=== PATIENT | female | born 1990 | race Caucasian/White ===

== ENCOUNTER → 2017-06-11 19:20 | Outpatient (CLI) | payer OTHER, SELFPAY ==
[2017-06-19 11:52] LABS: HPV APTIMA, High Risk Negative (Negative); HPV Reflexed? YES, CHARGE PATIENT
== END ==
PROVIDERS: Visit Provider Obstetrics & Gynecology
DX: Z12.4 Encounter for screening for malignant neoplasm of cervix (principal)
CPT/HCPCS: 87624; 88175; G0145

== ENCOUNTER → 2017-07-16 14:09 | Outpatient (CLI) | payer OTHER, SELFPAY ==
[2017-07-16 21:23] LABS: Chlamydia Trachomatis by PCR Negative (Negative); Neisserai gonorrhoeae by PCR Negative (Negative); Probe Check PASS; Sample Adequacy Control PASS; Specimen Processing Control PASS
[2017-07-19 11:08] LABS: HSV 1 IgG < 0.91 index (0.00-0.90); HSV 2 IgG < 0.91 index (0.00-0.90)
[2017-07-20 13:54] LABS: HSV Culture Without Typing NEGATIVE
== END ==
PROVIDERS: Family Provider Family Medicine; PCP Family Medicine; Visit Provider Obstetrics & Gynecology
DX: A60.04 Herpesviral vulvovaginitis (principal); A60.00 Herpesviral infection of urogenital system, unspecified
CPT/HCPCS: 36415; 86695; 86696; 87255; 87491; 87591

== ENCOUNTER → 2018-01-23 20:46 | Outpatient (CLI) | payer OTHER, SELFPAY ==
[2018-01-23 15:47] VITALS: BMI 21.2
== END ==
PROVIDERS: Family Provider Family Medicine; PCP Family Medicine; Referring Provider Physician Assistant Medical; Visit Provider Physician Assistant Medical
DX: R39.9 Unspecified symptoms and signs involving the genitourinary system (principal)
CPT/HCPCS: 87086

== ENCOUNTER → 2018-02-13 10:06 | Outpatient (CLI) | payer OTHER, SELFPAY ==
[2018-02-13 09:51] VITALS: BMI 21.2
[2018-02-13 12:14] LABS: HIV - WCH Non-Reactive (Nonreactive)
[2018-02-13 22:19] LABS: Chlamydia Trachomatis by PCR Negative (Negative); Neisserai gonorrhoeae by PCR Negative (Negative); Probe Check PASS; Sample Adequacy Control PASS; Specimen Processing Control PASS
[2018-02-15 04:54] LABS: Rapid Plasmin Reagin (RPR) NONREACTIVE (NONREACTIVE)
[2018-02-15 06:08] LABS: HCV Quant. RNA PCR HCV Not Detected IU/mL (.); HEPATITIS B SURFACE AG Negative (Negative); Hepatitis A IgM Antibody Negative (Negative); Hepatitis B Core AB IgM Negative (Negative)
[2018-02-15 12:25] LABS: HSV 1 IgG < 0.91 index (0.00-0.90); HSV 2 IgG < 0.91 index (0.00-0.90); Hep C Antibodies <0.1 s/co ratio (0.0-0.9)
--- OUTSIDE RECORDS SUMMARY | 2018-04-01 10:26 | XMS RPT_ITS ---
:1990 Author Organization [place] Support Name Relationship Address Phone MAISHA, KEELY Unavailable [address] + [address] Unavailable [address] + [place] [address] MAISHA, KEELY Unavailable [address] + [address] Unavailable [address] + [place] [address] MAISHA, KEELY Unavailable [address] + [place] [phone] [facility] Unavailable [address] + [place] [address] MAISHA, KEELY Unavailable [address] + [place] [phone] [facility] Unavailable [address] + [place] [address] MAISHA, KEELY Unavailable [address] + [place] [phone] [facility] Unavailable [address] + [place] [address] MAISHA, KEELY Unavailable [address] + [place] [phone] [facility] Unavailable [address] + [place] [address] MAISHA, KEELY Unavailable [address] + [place] [phone] [facility] Unavailable [address] + [place] [address] MAISHA, KEELY Unavailable [address] + [place] [phone] [facility] Unavailable [address] + [place] [address] MAISHA, KEELY Unavailable [address] + [place] [address] [facility] Unavailable [address] + [place] [address] [facility] Unavailable [address] + [place] [address] [facility] Unavailable [address] + [place] [address] [facility] Unavailable [address] + [place] [address] [facility] Unavailable [address] + [place] [address] Care Team Providers Name Role Phone Lolis Stewart Attending Unavailable Roddy Tomlin Referring Unavailable Belle RoseLolis loyola Attending Unavailable PatLolis Referring Unavailable [facility] Unavailable Primay Care Physicia, No Primary Care Unavailable Adonis Grant Attending Unavailable MarcanthonyCherise Attending Unavailable Primay Care Physicia, No Referring Unavailable Primay Care Physicia, No Primary Care Unavailable Marcanthony, Cherise Attending Unavailable Primay Care Physicia, No Primary Care Unavailable Marcanthony, Cherise Referring Unavailable Marcanthony, Cherise Attending Unavailable Primay Care Physicia, No Referring Unavailable Primay Care Physicia, No Primary Care Unavailable Marcanthony, Cherise Attending Unavailable Marcanthony, Cherise Referring Unavailable [place], Geronimo Primary Care Unavailable Marcanthony, Cherise Attending Unavailable Rangary, Geronimo Primary Care Unavailable Per Pryor Attending Unavailable [place] Referring Unavailable Rangary, Geronimo Primary Care Unavailable ASSESSMENT, HEALTH RISK Attending Unavailable ASSESSMENT, HEALTH RISK Referring Unavailable [place]ney, Geronimo Primary Care Unavailable Tabitha Pierce Attending Unavailable Nabor, Christemmanuel Referring Unavailable Tabitha Pierce Attending Unavailable [place], [facility] Primary Care Unavailable Tabitha Pierce Referring Unavailable Lolis Stewart Attending Unavailable Nabor, Christemmanuel Referring Unavailable PROBLEMS PROBLEMS DATE TYPE CONDITION / CODE ATTENDING STATUS SOURCE 02/13/2018 Unknown A64 - Unspecified Belle RoseLolis loyola Active [place] sexually transmitted Community disease / Hospital A64(ICD-10) Repository 02/13/2018 Unknown Z11.3 - Encounter Lolis Stewart Active [place] for screening for Community infections with a Hospital predominantly sexual Repository mode of transmission / Z11.3(ICD-10) 01/24/2018 Unknown R39.9 - Unspecified Kari, Active [place] symptoms and signs [facility] genitourinary system Repository / R39.9(ICD-10) 01/23/2018 Unknown R30.0 - Dysuria / Kari, Active [place] R30.0(ICD-10) [facility] Repository 07/17/2017 Unknown A60.04 - Herpesviral Marcanthalicia, Active [place] vulvovaginitis / [facility] A60.04(ICD-10) Hospital Repository 06/12/2017 Unknown Z12.4 - Encounter Kwaku, Active [place] for screening for [facility] malignant neoplasm Hospital of cervix / Repository Z12.4(ICD-10) 06/12/2017 Unknown Z01.419 - Encounter Kwaku, Active [place] for gynecological [facility] (general) (routine) Repository without abnormal findings / Z01.419(ICD-10) PROCEDURES PROCEDURES No Procedure Records FoundRESULTS RESULTS CT/NG [facility] BY PCR Collected: 02/13/2018 Status: F Source: [place] 6:30 PM [facility] REPOSITORY TYPE CODE TESTS RESULT OUT OF RANGE REFERENCE UNITS LAB L8200.2100 Negative Normal Chlam Negative Trac PCR LAB L8200.2200 Negative Normal NG by Negative PCR Performed By: #### L8200.2000 #### [facility] [address] [facility] [address] [place], [address] AIRPORT DUTY MANAGER OFFICE VISIT Observed: 02/13/2018 Status: F Source: [place] REPORT 10:14 AM [facility] REPOSITORY [facility] [address] [place] [address] OFFICE VISIT Date of Service: 02/13/18 MR#: [id number] Acct: [id number] Name: COCO SANTANA Ange Rep #: [id number] : 1990 Provider: CRISTIAN [place] Age/Sex: 27/F Location: [facility] Status: Signed Intake Vital Signs02/13/18 Body Mass Index (BMI) 21.2 02/13/18 Height 5 ft 9 in 02/13/18 Weight: 143 lb 02/13/18 Body Mass Index (BMI) 21.1 02/13/18 Blood Pressure 110/74 Intake Visit Reasons: STD check Chief Complaint: STD Check General Production Manager Required: No Is patient in pain?: No Allergies amoxicillin Allergy (Verified 02/13/18 09:50) Hives Penicillins Allergy (Verified 02/13/18 09:50) Hives Medications estradiol-dienogest 3 mg/2 mg-2 mg/2 mg-3 mg/1 mg tablet 1 tab PO DAILY #84 tab 06/11/17 [Rx Confirmed 02/13/18] Is last menstrual period known: No Post menopausal: No Patient : No : No PFSH Medical History Abnormal Pap smear of cervix (Acute) Migraines (Acute) Rosacea (Acute) Family History Mother Diabetes Grandmother Colon cancer Breast cancer Father Hypertension Social History Smoking Status: Never smoker alcohol intake: current details: occasionally substance use type: does not use caffeine: Yes what type of physical activity do you participate in: yoga, walking frequency: 3-4 times per week seatbelt use: always do you feel safe at home: Yes 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 No symptoms. Boyfriend may have had another partner. Pregancy History 0 Elective abortions Hx Para Spontaneous abortions ROS Const Constitutional: Reports system reviewed and no additional complaints, except as docu GI GI: Denies abdominal pain or change in bowel habits Exam Const General: no acute distress Nutritional Appearance: well nourished Orientation: oriented x3 General: bladder normal to palpation External Female Exam: normal external appearance, normal appearance of the urethra Urethra: normal appearance of the urethra Speculum Exam - Vagina: normal appearance of the vagina, normal vaginal discharge, nontender, no lesions Speculum Exam - Cervix: normal appearance of the cervix, other (smooth, nonfriable) Bimanual Exam- Vagina AND Uterus: bladder normal to palpation, normal bimanual exam, uterine size normal, uterine shape normal, uterine mobility normal, uterus non-tender Bimanual Exam- Adnexa, other: normal adnexae, no adnexal masses, adnexae non-tender Assessment AND Plan Problems 1. Screen for STD (sexually transmitted disease) Z11.3 Plan DEBORA trich, GCC, HIV, Hep C, RPR, HSV IGG 1 and 2. Call only with positive results RTO prn, annual exams Orders Orders: Coding Level of Care Code Off vis,est,level 3 Diagnoses Screen for STD (sexually transmitted disease) Z11.3 02/13/18 1014 <Electronically signed by Lolis MACE> Date Lolis HUGGINSC Cosigner Signature: Date (if applicable) CC: HIV - [facility] Collected: 02/13/2018 Status: F Source: [place] 10:10 AM [facility] REPOSITORY TYPE CODE TESTS RESULT OUT OF RANGE REFERENCE UNITS LAB L3890.6005 Nonreactive Normal HIV - [facility] Non-Reactive Performed By: #### L3890.6005 #### [facility] [address] [place], [place], [id number] RAPID PLASMIN REAGIN Collected: 02/13/2018 Status: F Source: [place] (RPR) 10:10 AM [facility] REPOSITORY TYPE CODE TESTS RESULT OUT OF REFERENCE UNITS RANGE LAB L700.5000 NONREACTIVE NONREACTIVE Normal RPR Performed By: #### L700.5000 #### [facility] [address] [place], [place], [address] HEPATITIS PANEL ACUTE Collected: 02/13/2018 Status: F Source: [place] 10:10 AM [facility] REPOSITORY TYPE CODE TESTS RESULT OUT OF RANGE REFERENCE UNITS LAB L3100.0200 Negative Normal HEP A Negative IgM 6734 LAB L3100.0400 Negative Normal HB Negative SURF AG LAB L3100.0440 Negative Normal HB Negative CORE [id number] LAB L3100.0650 0.0-0.9 s/co ratio Normal HEP C <0.1 AB Result Comment: Negative: < 0.8 Indeterminate: 0.8 - 0.9 Positive: > 0.9 The CDC recommends that a positive HCV antibody result be followed up with a HCV Nucleic Acid Amplification test ([id number]). Performed By: #### L3000.0375, L3400.1610, L7000.7000 #### [facility] (refer to report for specific site) refer to report for address and phone number HSV 1 AND 2 IGG Collected: 02/13/2018 Status: F Source: [place] 10:10 AM [facility] REPOSITORY TYPE CODE TESTS RESULT OUT OF RANGE REFERENCE UNITS LAB L3400.1620 0.00-0.90 index Normal HSV 1 IgG < 0.91 Result Comment: Negative <0.91 Equivocal 0.91 - 1.09 Positive >1.09 Note: Negative indicates no antibodies detected to HSV-1. Equivocal may suggest early infection. If clinically appropriate, retest at later date. Positive indicates antibodies detected to HSV-1. LAB L3400.1630 0.00-0.90 index Normal < HSV 2 IgG 0.91 Result Comment: Negative <0.91 Equivocal 0.91 - 1.09 Positive >1.09 Note: Negative indicates no antibodies detected to HSV-2. Equivocal may suggest early infection. If clinically appropriate, retest at later date. 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 Performed at: [facility] [address] [id number] Flight Information Expediter: Gabriel Grover PhD, Phone: [phone] Performed at: [facility] [address] [id number] Flight Information Expediter: Jesse Rosales MD, Phone: [phone] Performed By: #### L3000.0375, L3400.1610, L7000.7000 #### [facility] (refer to report for specific site) refer to report for address and phone number HEPATITIS C,RNA PCR Collected: 02/13/2018 Status: F Source: [place] VIRAL LOAD 10:10 AM [facility] REPOSITORY TYPE CODE TESTS RESULT OUT OF RANGE REFERENCE UNITS LAB L7000.7100 . IU/mL HCV Normal HCV Not Detected QT PCR LAB L7000.0950 . Test Normal HCV not performed log 10 LAB L7000.7500 . Normal TEST Comment INFO: Result Comment: The quantitative range of this assay is 15 IU/mL to 100 million IU/mL. Performed By: #### L3000.0375, L3400.1610, L7000.7000 #### [facility] (refer to report for specific site) refer to report for address and phone number AIRPORT DUTY MANAGER OFFICE VISIT Observed: 01/30/2018 Status: F Source: [place] REPORT 10:54 AM [facility] [address] [place] [address] OFFICE VISIT Date of Service: 01/30/18 MR#: [id number] Acct: [id number] Name: COCO SANTANA Rep #: [id number] : 1990 Provider: CRISTIAN Stewart Age/Sex: 27/F Location: [facility] Status: Signed Intake Vital Signs01/30/18 Body Mass Index (BMI) 21.2 01/30/18 Height 5 ft 9 in 01/30/18 Weight: 142 lb 8 oz 01/30/18 Body Mass Index (BMI) 21.0 01/30/18 Blood Pressure 110/72 Intake Visit Reasons: STD TESTING? General Production Manager Required: No Is patient in pain?: No Allergies amoxicillin Allergy (Verified 01/30/18 10:31) Hives Penicillins Allergy (Verified 01/30/18 10:31) Hives Medications estradiol-dienogest 3 mg/2 mg-2 mg/2 mg-3 mg/1 mg tablet 1 tab PO DAILY #84 tab 06/11/17 [Rx Confirmed 01/30/18] Is last menstrual period known: No Post menopausal: No Patient : No : No PFSH Medical History Abnormal Pap smear of cervix (Acute) Migraines (Acute) Rosacea (Acute) Family History Mother Diabetes Grandmother Colon cancer Breast cancer Father Hypertension Social History Smoking Status: Never smoker alcohol intake: current details: occasionally substance use type: does not use caffeine: Yes what type of physical activity do you participate in: yoga, walking frequency: 3-4 times per week seatbelt use: always do you feel safe at home: Yes 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 [facility] and ruled out UTI. Same sexual partner X 4 years. Negative STD testing within last year. Oral contraceptive for prevention. Pregancy History 0 Elective abortions Hx Para Spontaneous abortions ROS Const Constitutional: Reports system reviewed and no additional complaints, except as docu GI GI: Denies abdominal pain or change in bowel habits Exam Const General: cooperative, no acute distress Nutritional Appearance: average body habitus Orientation: oriented x3 General: bladder normal to palpation External Female Exam: normal external appearance (slight erythema at introitus), normal appearance of the urethra Urethra: normal appearance of the urethra Speculum Exam - Vagina: normal appearance of the vagina, nontender, no lesions, abnormal vaginal discharge (clear, watery) Speculum Exam - Cervix: normal appearance of the cervix, other (smooth, nonfriable) Bimanual Exam- Vagina AND Uterus: bladder normal to palpation, normal bimanual exam, uterine size normal, uterine shape normal, uterine mobility normal, uterus non-tender Bimanual Exam- Adnexa, other: normal adnexae, no adnexal masses, adnexae non-tender Assessment AND Plan Problems 1. Vulvovaginitis N76.0 Plan DEBORA BV and trich, call results. Coding Level of Care Code Off vis,est,level 3 Diagnoses Vulvovaginitis N76.0 01/30/18 1054 <Electronically signed by Lolis MACE> Date Lolis MACE Cosigner Signature: Date (if applicable) CC: URGENT CARE VISIT Observed: 01/23/2018 Status: F Source: [place] REPORT 4:16 PM [facility] REPOSITORY [facility] [address] [place] [address] [address] [place] [address] OFFICE VISIT Date of Service: 01/23/18 MR#: [id number] Acct: [id number] Name: COCO SANTANA Rep #: [id number] : 1990 Provider: LEIAS Pierce Age/Sex: 27/F [place] [facility] Status: Signed Intake Vital Signs01/23/18 Height 5 ft 9 in 01/23/18 Weight: 144 lb 01/23/18 Body Mass Index (BMI) 21.2 01/23/18 Blood Pressure 110/74 Intake Visit Reasons: UTI SYMPTOMS Chief Complaint: burning with urination General Production Manager Required: No Accompanied by: Self Is patient in pain?: No Allergies amoxicillin Allergy (Verified 01/23/18 15:48) Hives Penicillins Allergy (Verified 01/23/18 15:48) Hives Medications estradiol-dienogest 3 mg/2 mg-2 mg/2 mg-3 mg/1 mg tablet 1 tab PO DAILY #84 tab 06/11/17 [Rx Confirmed 01/23/18] PFS Medical History Abnormal Pap smear of cervix (Acute) Migraines (Acute) Rosacea (Acute) Family History Mother Diabetes Grandmother Colon cancer Breast cancer Father Hypertension Social History Smoking Status: Never smoker alcohol intake: current details: occasionally substance use type: does not use caffeine: Yes what type of physical activity do you participate in: yoga, walking frequency: 3-4 times per week seatbelt use: always do you feel safe at home: Yes 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 She states she has a chronic slight white discharge which has been evaluated by her SOCIOLOGY ADJUNCT INSTRUCTOR with negative test results. She has frequency urinatingg at least 10 times a day. No fever chills. + burning after each urination. No itching. she has increased her fluids X 5 days as well. She is allergic to PCN. no fever or chills. No recent history or UTI. ROS Const Constitutional: No body ache, chills, fatigue, fever(s), night sweats, change in appetite, weakness, frequent falls, headache(s) or excessive sweating Eyes Eyes: No visual disturbances, light sensitivity, eye pain or change in vision ENT ENT: No ear pain, ear discharge, hearing loss, dizziness/vertigo, nasal discharge, difficulty swallowing, sore throat, neck pain or headache(s) Resp Respiratory: No cough, chest congestion, hemoptysis, shortness of breath or wheezing Cardio Cardiology: No shortness of breath, irregular heart rhythm, lightheadedness, chest pain at rest, chest pain with exertion, generalized swelling, orthopnea, palpitations or excessive sweating Gastro GI: No difficulty swallowing, abdominal pain, bloating, change in bowel habits, diarrhea, blood in stool, Black,tarry stools, nausea/dyspepsia or vomiting Genitourinary-Female: Positive for burning urination, urinary frequency and urinary urgency; no blood in urine or Vaginal Itching Musc Musculoskeletal: No joint pain, back pain, numbness, tingling or neck pain Skin Skin: No lesions, itching or rash Neuro Neurology: No visual disturbances, numbness, tingling, abnormal speech, confusion, unsteady gait/balance, dizziness, weakness, frequent falls, loss of vision, headache(s) or memory loss Psych Psychiatric: No change in appetite, No confusion, No memory loss, No anxiety, No depression Endo Endocrine: No fatigue, cold intolerance, excessive sweating, flushing, heat intolerance or increased thirst/drinking Aller/Imm Allergy/Immunologic: No wheezing, itchy eyes, food intolerance, seasonal allergy symptoms or hives Chin/Lymp Hematologic/Lymphatic: No easy bruising Exam Const General: cooperative, no acute distress, healthy appearing Orientation: alert, oriented x3 HENTN Head: normal to inspection, normocephalic Ears: hearing grossly normal bilaterally Eyes General: appearance normal, both eyes and all related structures Eyelids: eyelids normal Conjunctivae: conjunctivae normal Sclera: sclerae normal Neck Neck: normal visual inspection, full ROM, no meningeal signs, supple, no lymphadenopathy Neck mass: No Lymphatic: no lymphadenopathy noted Chest Chest palpation AND inspection: normal inspection of the chest Resp Effort AND Inspection: normal respiratory effort, able to speak in complete sentences, symmetric chest movement, no audible wheezes, no cough, not labored, no respiratory distress Auscultation: Bilateral: Clear to Auscultation Cardio Rate: regular rate Rhythm: regular rhythm Heart Sounds: S1 normal, S2 normal GI Inspection: normal to inspection Auscultation: normal bowel sounds Palpation: soft, no hepatosplenomegaly, no pulsatile masses, no guarding, no hernias, no masses, tender (minimally suprapubic, causing urge to urinate. ) suprapubicly Other: U/A: trace off blood, otherwise negative. Musc Musculoskeletal: No joint tenderness or joint redness Skin General: no rashes or lesions noted Neuro General: alert, oriented x3, moves all extremities Cognition: normal cognition Speech: speech normal Gait: normal gait Extrem General: normal to inspection Psych Appearance: grossly normal, well kempt Mental Status: mental status grossly normal Affect: normal affect Speech and Movement: speech and movement normal Attitude: cooperative Thought Process: normal Thought Content: normal Judgment: judgment good Results BMSUA Office Urine Color Colorless Last Edit by Ale Ivan on 01/23/18 15:52 Assessment AND Plan Problems 1. UTI symptoms R39.9 Plan Macrobid 100 mg bid x 10 days called to pharmacy Urine sent for culture. F/u with SOCIOLOGY ADJUNCT INSTRUCTOR if symptoms persist. Orders Orders: Coding Level of Care Code Off vis,est,level 3 Diagnoses UTI symptoms R39.9 01/23/18 1616 <Electronically signed by Tabitha GRIFFIN> Date Tabitha GRIFFIN Cosigner Signature: Date (if applicable) CC: Observed: 01/23/2018 Status: F Source: [place] CULTURE, URINE 3:30 PM [facility] REPOSITORY Urine Culture Culture exhibits no growth. Performed By: #### M100.0650 #### [facility] [address] [place], [place], [address] URINALYSIS, EMPLOYEE Collected: 10/26/2017 Status: F Source: [place] 2:21 PM [facility] REPOSITORY TYPE CODE TESTS RESULT OUT OF RANGE REFERENCE UNITS LAB L400.3000 Yellow COLOR Normal Yellow LAB L400.3050 Clear Normal CLARITY Sl. Cloudy LAB L400.3200 Normal mg/dl Normal GLUCOSE, UR Normal LAB L400.3300 Negative mg/dL Normal BILIRUBIN URINE Negative LAB L400.3400 Negative mg/dl Normal KETONE UR Negative LAB L400.3465 1.002-1.030 Normal SP.GR. DIPSTX 1.015 LAB L400.3550 5.0 - 8.0 pH UR Normal 7.0 LAB L400.3600 Negative mg/dl PROT Normal DIPSTX Negative LAB L400.3700 Normal mg/dl Normal UROBILI Normal LAB L400.3750 Negative Normal NITRITE UR Negative LAB L400.3780 Negative /ul High 50 OCCULT BLOOD-UR LAB L400.3800 Negative /ul LEUK Normal ESTERASE Negative Performed By: #### L400.0100 #### [facility] [place], [place], [address] CBC, EMPLOYEE Collected: 10/26/2017 Status: F Source: [place] 2:21 PM [facility] REPOSITORY TYPE CODE TESTS RESULT OUT OF RANGE REFERENCE UNITS LAB L100.1000 4.4-11.0 K/mm3 Normal WBC 5.2 LAB L100.1200 4.2-5.4 M/mm3 Normal RBC 4.63 LAB L100.1300 12.0-15.0 g/dl Normal HGB 14.1 LAB L100.1400 37-47 % Normal HCT 42.3 LAB L100.1500 81-99 fL Normal MCV 91.4 LAB L100.1600 27.0-32.0 pg Normal MCH 30.5 LAB L100.1700 32-36 g/gl Normal MCHC 33.3 LAB L100.1810 11.6-14.6 % Normal RDW CV 12.8 LAB L100.1820 35.1-43.9 fl Normal RDW SD 41.8 LAB L100.1900 150-450 K/mm3 Normal PLT 223 LAB L100.2000 6.2-12.0 fl Normal MPV 10.5 LAB L100.2110 47-70 % Normal NEUT% 54.2 LAB L100.2210 19-41 % Normal LY% 38.2 LAB L100.2310 0-10 % Normal MONO% 5.8 LAB L100.2410 0-5 % Normal EO% 1.2 LAB L100.2510 0-1 % Normal BASO% 0.6 LAB L100.2620 2.0-7.7 X10 3/uL Normal Absolute Neut 2.8 LAB L100.2720 0.83-4.51 X10 3/ul Normal Absolute Lymph 1.97 Performed By: #### L100.0200 #### [facility] [address] [facility] [place], [place], [id number] NICOTINE URINE DRUG Collected: 10/26/2017 Status: F Source: [place] SCREEN 2:21 PM [facility] REPOSITORY TYPE CODE TESTS RESULT OUT OF RANGE REFERENCE UNITS LAB L505.6250 TO BE Normal CONFIRMED Result Comment: CONFIRMATORY TESTING FOR ALL POSITIVE URINE DRUG SCREEN RESULTS WILL ONLY BE SENT OUT UPON PHYSICIAN ORDER. The results of Urine Drug Screen methods provide only preliminary analytical test results. A more specific alternate chemical method must be used in order to obtain a confirmed analytical result. Gas chromatography/mass spectrometery (GC/MS) is the preferred confirmatory method. Clinical consideration and professional judgement should be applied to any drug of abuse test result, particularly when preliminary positive results are used. LAB L505.6270 <200 ng/mL Normal COT DRG Negative SCREEN Result Comment: Cotinine is the first-stage metabolite of Nicotine. Performed By: #### L505.6240 #### [facility] [address] [facility] [place], [place], [id number] EMPLOYEE PROFILE Collected: 10/26/2017 Status: F Source: [place] 2:21 PM [facility] REPOSITORY TYPE CODE TESTS RESULT OUT OF RANGE REFERENCE UNITS LAB L501.0100 74-106 mg/dL Normal GLU 87 Result Comment: Please note revised GLUCOSE reference range effective 2017. LAB L501.1000 7-18 mg/dL Normal BUN 9 LAB L501.1100 0.55-1.02 mg/dL Normal CREAT,SERUM 0.80 Result Comment: The validity of the calculated GFR AND GFRAA in patients over 70 years has not been determined. Clinical correlation is essential. LAB L501.1110 >60 mL/min Normal EST GFR 91 Result Comment: Non- GFR Calc LAB L501.1115 >60 mL/min Normal EST GFR - AA 110 Result Comment: GFR Calc LAB L501.1300 10-20 RATIO Normal BUN/CRE 11.2 LAB L501.1400 2.6-6.0 mg/dL Normal URIC 4.9 Result Comment: The drugs N-Acetylcysteine and Metamizole may falsely depress this assay. LAB L501.1500 6.4-8.2 g/dL Normal T PROT 7.0 LAB L501.1800 3.2-5.0 g/dL Normal ALB 4.0 LAB L501.1950 2.2-4.2 g/dL Normal GLOB 3.0 LAB L501.2000 0.9-2.4 RATIO Normal A/G 1.3 LAB L501.2200 8.5-10.1 mg/dL Normal CA 8.7 LAB L501.2300 2.5-4.9 mg/dL Normal PHOS 3.1 LAB L501.4100 15-37 U/L Normal AST 16 LAB L501.4305 45-117 U/L Normal ALK P 56 LAB L501.4405 13-56 U/L Normal ALT 16 LAB L501.4600 0.20-1.00 mg/dL Normal T BILI 0.60 LAB L501.4700 0.00-0.30 mg/dL Normal D BILI 0.12 LAB L501.4900 200 mg/dL Normal CHOL 135 Result Comment: <200 mg/dL Desirable 200-240 mg/dL Borderline >240 mg/dL High Risk LAB L501.5000 mg/dL Normal TRIG 38 Result Comment: The drugs N-Acetylcysteine and Metamizole may falsely depress this assay. Serum Triglycerides Reference Interval Normal <150 mg/dL Borderline high 150 - 199 mg/dL High 200 - 499 mg/dL Very High > or = 500 mg/dL LAB L501.5300 136-145 mmol/L Normal NA 142 LAB L501.5600 3.5-5.1 mmol/L Normal K 4.2 LAB L501.5900 98-107 mmol/L Normal CL 106 LAB L501.6100 21.0-32.0 mmol/L Normal CO2 28.0 LAB L501.6200 5-15 Normal 8 GAP LAB L501.6400 mg/dL Normal HDL 70 Result Comment: The drugs N-Acetylcysteine and Metamizole may falsely depress this assay. Reference Range HDL <40 mg/dL Low HDL Cholesterol HDL >or= 60 mg/dL High HDL Cholesterol LAB L501.6475 Normal CHOL:HDL 1.90 LAB L501.6500 0-130 mg/dL Normal LDL 57 LAB L501.6600 5-40 mg/dL Normal VLDL 8 LAB L504.2610 84-246 U/L Normal LDH 150 Performed By: #### L500.2900 #### [facility] [address] [facility] [place], [address] CT/NG WCH BY PCR Collected: 07/16/2017 Status: F Source: [place] 7:07 [facility] REPOSITORY TYPE CODE TESTS RESULT OUT OF RANGE REFERENCE UNITS LAB L8200.2100 Negative Normal Chlam Negative Trac PCR LAB L8200.2200 Negative Normal NG by Negative PCR Performed By: #### L8200.2000 #### [facility] [facility] [place], [address] CT/NG WCH BY PCR Collected: 07/16/2017 Status: F Source: [place] 7:07 [facility] REPOSITORY TYPE CODE TESTS RESULT OUT OF RANGE REFERENCE UNITS LAB L8200.2100 Negative Normal Chlam Negative Trac PCR LAB L8200.2200 Negative Normal NG by Negative PCR Performed By: #### L8200.2000 #### [facility] [place], [address] Observed: 07/16/2017 Status: F Source: [place] CULTURE, HERPES 7:07 PM [facility] SIMPLEX VIRUS REPOSITORY HSV Cult 8250 TESTING PERFORMED AT [facility] ORIGINAL REPORT ON FILE IN LAB CONTAINS ADDITIONAL TEST SITE INFORMATION. HSV Culture/Typing Negative No Herpes simplex Virus Isolated Performed By: #### M600.3000 #### [facility] [address] [place], [address] HSV 1 AND 2 IGG Collected: 07/16/2017 Status: F Source: [place] 2:19 PM [facility] REPOSITORY TYPE CODE TESTS RESULT OUT OF RANGE REFERENCE UNITS LAB L3400.1620 0.00-0.90 index Normal HSV 1 IgG < 0.91 Result Comment: Negative <0.91 Equivocal 0.91 - 1.09 Positive >1.09 Note: Negative indicates no antibodies detected to HSV-1. Equivocal may suggest early infection. If clinically appropriate, retest at later date. Positive indicates antibodies detected to HSV-1. LAB L3400.1630 0.00-0.90 index Normal < HSV 2 IgG 0.91 Result Comment: Negative <0.91 Equivocal 0.91 - 1.09 Positive >1.09 Note: Negative indicates no antibodies detected to HSV-2. Equivocal may suggest early infection. If clinically appropriate, retest at later date. 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 Performed at: [facility] [id number] Flight Information Expediter: Gabriel Grover PhD, Phone: [phone] Performed By: #### L3400.1610 #### [facility] (refer to report for specific site) refer to report for address and phone number HSV CULTURE SCREEN Collected: 07/16/2017 Status: F Source: [place] 2:19 PM [facility] REPOSITORY TYPE CODE TESTS RESULT OUT OF RANGE REFERENCE UNITS LAB L3900.2400 Normal HSV CULTURE NEGATIVE LAB L3900.2500 Normal HSV RESULT 1 Result Comment: No Herpes simplex virus isolated. Performed By: #### L3900.2300 #### [facility] (refer to report for specific site) refer to report for address and phone number AIRPORT DUTY MANAGER OFFICE VISIT Observed: 07/16/2017 Status: F Source: [place] REPORT 2:07 PM [facility] [address] [place] [address] OFFICE VISIT Date of Service: 07/16/17 MR#: [id number] Acct: [id number] Name: COCO SANTANA Rep #: [id number] : 1990 Provider: Cherise Ames MD Age/Sex: 27/F Location: [facility] Status: Signed Intake Vital Signs07/16/17 Height 5 ft 9 in 07/16/17 Weight: 136 lb 6 oz 07/16/17 Body Mass Index (BMI) 20.1 07/16/17 Blood Pressure 121/85 Intake Visit Reasons: STD CHECK - HAVING DISCOMFORT General Production Manager Required: No Is patient in pain?: Yes Pain scale (1-10): 4 Allergies amoxicillin Allergy (Verified 07/16/17 13:44) Hives Penicillins Allergy (Verified 07/16/17 13:44) Hives Medications estradiol-dienogest 3 mg/2 mg-2 mg/2 mg-3 mg/1 mg tablet 1 tab PO DAILY #84 tab 06/11/17 [Rx Confirmed 07/16/17] Is last menstrual period known: No Post menopausal: No Patient : No : No [facility] History Abnormal Pap smear of cervix (Acute) Migraines (Acute) Rosacea (Acute) Family History Mother Diabetes Grandmother Colon cancer Breast cancer Father Hypertension Social History Smoking Status: Never smoker alcohol intake: current details: occasionally substance use type: does not use caffeine: Yes what type of physical activity do you participate in: yoga, walking frequency: 3-4 times per week seatbelt use: always do you feel safe at home: Yes 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 she dneies any new sexual partners and has no hiostry of stds. denies any discharge fevers or urinary complaints. Pregancy History 0 Elective abortions Hx Para Spontaneous abortions ROS Const Constitutional: Reports system reviewed and no additional complaints, except as docu : Reports as per HPI and system reviewed and no additional complaints, except as docu Exam Const General: cooperative, healthy appearing, comfortable, no acute distress External Female Exam: externally tender, external lesions (right introitus 4 separate herpetic early lesions) Assessment AND Plan Problems 1. Primary herpetic vulvovaginitis A60.04 Plan culture, labs, information given. valtrex ordered Coding Level of Care Code Off vis,est,level 3 Diagnoses Primary herpetic vulvovaginitis A60.04 07/16/17 1407 <Electronically signed by Cherise Ames MD> Date Cherise Ames MD Cosigner Signature: Date (if applicable) CC: AIRPORT DUTY MANAGER OFFICE VISIT Observed: 06/14/2017 Status: F Source: [place] REPORT 3:00 AM [facility] [address] [place] [address] OFFICE VISIT Date of Service: 06/11/17 MR#: [id number] Acct: [id number] Name: COCO SANTANA Rep #: [id number] : 1990 Provider: Cherise Ames MD Age/Sex: 26/F Location: [facility] Status: Signed Intake Vital Signs06/11/17 Height 5 ft 9 in 06/11/17 Weight: 138 lb 6 oz 06/11/17 Body Mass Index (BMI) 20.4 06/11/17 Blood Pressure 121/79 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 General Production Manager Required: No Is patient in pain?: No Allergies amoxicillin Allergy (Verified 06/11/17 10:58) Hives Penicillins Allergy (Verified 06/11/17 10:58) Hives Medications estradiol-dienogest 3 mg/2 mg-2 mg/2 mg-3 mg/1 mg tablet 1 tab PO DAILY #84 tab 06/11/17 [Rx Confirmed 06/11/17] Is last menstrual period known: No Post menopausal: No Patient : No : No PFSH Medical History Abnormal Pap smear of cervix (Acute) Family History Mother Diabetes Grandmother Colon cancer Breast cancer Father Hypertension Social History Smoking Status: Never smoker alcohol intake: current details: occasionally substance use type: does not use caffeine: Yes what type of physical activity do you participate in: yoga, walking frequency: 3-4 times per week seatbelt use: always do you feel safe at home: Yes 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 Last PAP: unsure History of abnormal PAP: none Last mammogram: History of abnormal mammogram: Colon cancer screening: Other preventative health care screenings: Female Reproductive History Cycle Length: >35 Questions: Metorrhagia: No, Sexually active: Yes, Dyspareunia: Yes, PCB: No ROS Const Constitutional: Reports as per HPI; denies poor appetite, fatigue, increased appetite, weight gain or weight loss Cardio Card: Denies chest pain Resp Resp: Denies dyspnea or cough GI GI: Reports as per HPI; denies bloating, abdominal pain, constipation, vomiting or nausea : Reports as per HPI and other; denies blood in urine, vaginal odor, vaginal itching, vaginal dryness, vaginal discharge, urinary urgency, urinary incontinence, urinary frequency, pelvic pain, painful urination, difficulty urinating, prolapse symptoms or nipple discharge Skin Skin/Breast: Denies breast pain, breast skin changes, nipple discharge, breast lump or changing lesions Exam Const General: cooperative, healthy appearing, comfortable, no acute distress, well developed, well groomed HENMT Head: normal to inspection, normocephalic Ears: hearing grossly normal bilaterally, external ears normal Nose: external nose normal Face and sinus: normal facial exam Neck Neck: normal visual inspection, full ROM, no lymphadenopathy Thyroid: thyroid normal Chest Chest palpation AND inspection: normal inspection of the chest Breast inspection: normal inspection of the breasts, normal inspection of the axillae Breast palpation: normal palpation of the breasts, normal palpation of the axillae, no axillary lymphadenopathy Resp Effort AND Inspection: normal respiratory effort GI Inspection: normal to inspection, non-distended Palpation: no guarding, soft, no hepatosplenomegaly General: bladder normal to palpation External Female Exam: normal external appearance, normal appearance of the urethra, no lesions Urethra: normal appearance of the urethra, normal palpation Speculum Exam - Vagina: normal appearance of the vagina, normal vaginal discharge Speculum Exam - Cervix: normal appearance of the cervix, no cervical discharge, no lesions, nontender Bimanual Exam- Vagina AND Uterus: No cervical tenderness, normal bimanual exam, uterine size normal, bladder normal to palpation, uterine mobility normal, uterine consistency normal, uterus non-tender, no cervical motion tenderness Bimanual Exam- Adnexa, other: normal adnexae, no adnexal masses, adnexae non-tender Skin General: no rashes or lesions noted Neuro General: alert, moves all extremities, no focal motor deficits Extrem General: no pedal edema, normal to inspection Psych Appearance: grossly normal Mental Status: mental status grossly normal Affect: normal affect Speech and Movement: speech and movement normal Attitude: cooperative Assessment AND Plan Problems 1. Encounter for gynecological examination without abnormal finding Z01.419 2. Screening for cervical cancer Z12.4 Plan Cervical cancer screening: pap Breast cancer screening: clinical STD prevention and contraceptive options including their risks, benefits, and alternatives were reviewed with the patient and she chooses: ocp Encouraged maintenance of a healthy weight and active lifestyle and handout given. Calcium/vitamin D recommendations provided. Annual exam handout including recommendations for good health guidelines and basic screening information given. Problem list up to date, see problem list details for any additional plan information. follow up in one year for annual health maintenance exam or sooner if needed. Orders Orders: Medications Changed: Coding Level of Care Code Off vis,est,prev 18-39yrs Diagnoses Encounter for gynecological examination without abnormal finding Z01.419 Gynecological examination findings: abnormal findings ABSENT Screening for cervical cancer Z12.4 06/14/17 0259 <Electronically signed by Cherise Ames MD> Date [facility] MD [facility] Signature: Date (if applicable) CC: PAP I-G W/RFX Collected: 06/11/2017 Status: F Source: [place] HRHPV-APTIMA 7:21 PM [facility] REPOSITORY Order Comment: CYTOLOGY INFORMATION: - CLINICAL INFORMATION: ANNUAL - DATE LMP/MENOPAUSE: LMP/ UNK - COLLECTION VIAL: Thin Prep Vial - SOCIOLOGY ADJUNCT INSTRUCTOR SOURCE: CERVICAL - COLLECTION TECHNIQUE: CX BROOM ONLY Specimen Comment: [id number] Specimen Comment: No. of containers..01 ThinPrep Vial TYPE CODE TESTS RESULT OUT OF REFERENCE UNITS RANGE LAB L7400.0800 . High DIAGN Comment Result Comment: EPITHELIAL CELL ABNORMALITY. ATYPICAL SQUAMOUS CELLS OF UNDETERMINED SIGNIFICANCE. LAB L7400.0900 . Normal ADEQ Comment Result Comment: Satisfactory for evaluation. Endocervical and/or squamous metaplastic cells (endocervical component) are present. LAB L7400.1300 . High RECOMM Comment Result Comment: Suggest follow up as clinically appropriate. LAB L7400.1400 . Normal PERFORM Comment Result Comment: Roscoe Thomas, Radar Technician (ASCP) LAB L7400.1700 . Normal SIGN Comment Result Comment: Tanya Saenz MD, Pathologist LAB L7400.1720 . Normal Path prov. Comment ICD9 Result Comment: R87.610 LAB L7400.2575 . Normal TEST METHOD Comment Result Comment: This liquid based ThinPrep(R) pap test was screened with the use of an image guided system. LAB L7400.2600 . Normal . COMM LAB L7400.2700 . Normal PAPSMR Comment Result Comment: The Pap smear is a screening test designed to aid in the detection of premalignant and malignant conditions of the uterine cervix. It is not a diagnostic procedure and should not be used as the sole means of detecting cervical cancer. Both false-positive and false-negative reports do occur. LAB L7400.2760 Negative Normal HPV APTIMA, Negative HR Result Comment: This test detects fourteen high-risk HPV types (16/18/31/33/35/39/45/ 51/52/56/58/59/66/68) without differentiation. Performed at: [facility] - [facility] [id number] Flight Information Expediter: Celeste Leach MD, Phone: [phone] Performed at: =G - [facility] [address] [id number] Flight Information Expediter: Celeste Leach MD, Phone: [phone] LAB L7660.8024 . Normal HPV RFLX Comment Result Comment: See below for HPV testing results. Performed By: #### L7400.0353 #### [facility] (refer to report for specific site) refer to report for address and phone number EMERGENCY DEPARTMENT Observed: 05/29/2017 Status: F Source: [place] SUMMARY 9:23 PM [facility] REPOSITORY [facility] Medical Records Department [address] [place] [address] Emergency Department Summary 05/28/17 1730 MR#: [id number] Acct: [id number] Name: COCO SANTANA Rep #: [id number] : 1990 26 From: Adonis Grant DO PCP: Care Physician, No Primary Status: REG REF - ER Visit Summary Date of Service: 05/28/17 Chief Complaint: Blood exposure History of Present Illness: 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 She had glasses on is unsure if any blood got into her eyes. She contacted nursing supervisor beam department. The source patient is identified. Patient does not note any eye irritation. Physical Examination: Afebrile vital signs are stable Gen: Well-nourished well-developed Head: Normocephalic atraumatic Eyes: Perrl EOMI ENT: TMs clear no rhinorrhea moist mucous membranes Neck: Supple no lymphadenopathy no JVD nontender CVS: Regular rate rhythm no murmurs normal S1-S2 Respiratory: No distress clear to auscultation bilaterally chest nontender Abdomen: Soft nontender nondistended normal bowel sounds no masses Back: Nontender Extremity: Nontender no edema Skin: Normal color no rash Neuro: alert orientated 3 CN II-XII intact normal strength sensation reflexes gait cerebellar Psych: Normal affect normal mood Emergency Department Course and Treatment: Blood exposure protocol implemented. We did discuss prophylactic medications which have been declined at the current time. Impression:. Healthcare worker blood exposure This note was generated with [email or web address] software. It may contain incorrect words, spelling, and punctuation that were not noted in review of the chart prior to signing ED Disposition - Plan for ED Patient: Disposition: Home or Assisted Living Chief Complaint: Occup Expose Instructions: ED Body Fluid Exp HC Worker Referrals: Care Physician,No Primary [Primary Care Provider] - Corporate,Care [GROUP OF PHYSICIANS] - What to do if you have Problems For any increased pain, shortness of breath, bleeding, nausea or vomiting, chest pain, or any unexpected problems, contact your Primary Care Provider. Call [facility] ([phone]) or report to the closest Emergency Room. Call 911 if necessary. 05/29/172122 <Electronically signed by Adonis Grant DO> Date Adonis Grant DO Cosigner Signature (If Indicated): Date CC: No Primary Care Physician HIV - [facility] Collected: 05/28/2017 Status: F Source: [place] 6:05 PM [facility] REPOSITORY TYPE CODE TESTS RESULT OUT OF RANGE REFERENCE UNITS LAB L3890.6005 Nonreactive Normal HIV - [facility] Non-Reactive Performed By: #### L3890.6005 #### [facility] [address] [place], [address] HEPATITIS B SURFACE Collected: 05/28/2017 Status: F Source: [place] AG 6:05 PM [facility] REPOSITORY TYPE CODE TESTS RESULT OUT OF RANGE REFERENCE UNITS LAB L3100.0400 Negative Normal HB Negative SURF AG Result Comment: Performed at: [facility] [address] [id number] Flight Information Expediter: Gabriel Grover PhD, Phone: [phone] Performed By: #### L3100.0390, L3100.0537, L3100.0625 #### [facility] (refer to report for specific site) refer to report for address and phone number HEP B SURFACE Collected: 05/28/2017 Status: F Source: [place] ANTIBODIES EMP 6:05 PM [facility] REPOSITORY TYPE CODE TESTS RESULT OUT OF RANGE REFERENCE UNITS LAB L3100.0537 . Normal Hep B Reactive Karan AB Result Comment: Non Reactive: Inconsistent with immunity, less than 10 mIU/mL Reactive: Consistent with immunity, greater than 9.9 mIU/mL Performed By: #### L3100.0390, L3100.0537, L3100.0625 #### [facility] (refer to report for specific site) refer to report for address and phone number HEPATITIS C ANTIBODIES Collected: 05/28/2017 Status: F Source: [place] 6:05 PM [facility] REPOSITORY TYPE CODE TESTS RESULT OUT OF RANGE REFERENCE UNITS LAB L3100.0650 0.0-0.9 s/co ratio Normal HEP C AB <0.1 Result Comment: Negative: < 0.8 Indeterminate: 0.8 - 0.9 Positive: > 0.9 The CDC recommends that a positive HCV antibody result be followed up with a HCV Nucleic Acid Amplification test (701641). Performed By: #### L3100.0390, L3100.0537, L3100.0625 #### [facility] (refer to report for specific site) refer to report for address and phone number ALLERGIES ALLERGIES DATE TYPE / CODE NAME / CODE REACTION SEVERITY SOURCE 02/13/2018 Drug Penicillins/ Hives Unknown [facility] Allergy/4160 [id number]( Hospital [address]8821(SNOMED XNORM) Repository CT) 02/13/2018 Drug amoxicillin/ Hives Unknown [facility] Allergy/4160 [id number]( Hospital 72163(SNOMED XNORM) Repository CT) ENCOUNTERS ENCOUNTERS ADMIT/DISCHARGE ACCOUNT ADMITTING ENCOUNTER LOCATION SOURCE NUMBER CLASS 02/13/2018 [id number] Ambulatory [place] 1 [facility] ing:PAVLAB Repository 02/13/2018/ [id number] Ambulatory BMSBuilding:B [place] 8 3 [facility] Repository 01/30/2018/ [id number] Ambulatory BMSBuilding:B [place] 8 5 [facility] Repository 01/23/2018 [id number] Ambulatory [place] 4 [facility] ing:LAB[facility] Repository 01/23/2018/ [id number] Ambulatory BMSBuilding:B [place] 8 9 [facility] Repository 10/26/2017 [id number] Ambulatory [place] 7 [facility] ing:EMPH Repository 08/10/2017/ [id number] Ambulatory BMSBuilding:B [place] 8 2 [facility] Repository 07/16/2017 [id number] Ambulatory [place] 8 [facility] ing:LAB[facility] Repository 07/16/2017 [id number] Ambulatory [place] 3 [facility] ing:LAB Repository 07/16/2017/ [id number] Ambulatory BMSBuilding:B [place] 8 8 [facility] Repository 06/11/2017 [id number] Ambulatory [place] 0 [facility] ing:[facility] Repository 06/11/2017/ [id number] Ambulatory BMSBuilding:B [place] 8 9 [facility] Repository 05/28/2017 [id number] Ambulatory [place] 2 [facility] ing:ED Repository PAYERS PAYERS ENCOUNTER GUARANTOR PAYER SUBSCRIBER SOURCE 02/13/2018 COCO [place] Primary Insurance:[facility] COCO [place] [id number] [facility] GEHRISCHDOB: [facility] [id number] Number: Repository [id number]: (104) [id number] [phone] () Date:1046-01-90IY [address] [address], [place] [address]BW: CHECK WEBSITE 02/13/2018 Secondary NOT GIVENUNK [place] Insurance:SELF PAY [facility] Number: Effective Repository Date:2018-02-13 02/13/2018 COCO [place] Primary Insurance:[facility] COCO [place] [id number] [employer] GEHRISCHDOB: [facility] [id number] Number: Repository [address]Bgf: 419 [id number] [phone] (HP) Date:7509-36-07BA [address] [address], [place] [address]YS: CHECK WEBSITE 02/13/2018 Secondary NOT GIVENUNK [place] Insurance:SELF PAY [facility] Number: Effective Repository Date:2018-02-13 01/30/2018 COCO [place] Primary Insurance:[facility] COCO [place] [id number] [employer] GEHRISCHDOB: [facility] [id number], [place] Number: Repository [id number]: 419 [id number] [phone] (HP) Date:9569-19-69MA [address] [address], [place] [address]ZE: CHECK WEBSITE 01/30/2018 Secondary NOT GIVENUNK [place] Insurance:SELF PAY [facility] Number: Effective Repository Date:2018-01-30 01/23/2018 COCO [place] Primary Insurance:[facility] COCO [place] [id number] [employer] GEHRISCHDOB: [facility] [id number], [place] Number: Repository [id number]: 419 [id number] [phone] (HP) Date:4444-69-05KF [address] [address], [place] [address]XP: CHECK WEBSITE 01/23/2018 Secondary NOT GIVENUNK [place] Insurance:SELF PAY [facility] Number: Effective Repository Date:2018-01-23 01/23/2018 COCO Cassidy Primary Insurance:[facility] COCO [place] [id number] [facility] GEHRISCHDOB: [facility] [id number], [place] Number: Repository [id number]: (125) [id number] [phone] (HP) Date:1144-25-65ZI [address] [address], [place] [address]TN: CHECK WEBSITE 01/23/2018 Secondary NOT GIVENUNK [place] Insurance:SELF PAY [facility] Number: Effective Repository Date:2018-01-23 10/26/2017 COCO Cass[place] Primary NOT GIVENUNK [place] [id number] Insurance:SELF PAY [place], [place] Number: Effective Repository [id number]: (419) Date:2017-10-26 [phone] (HP) 08/10/2017 COCO Cassidy Primary Insurance:[facility] COCO Cassidy Richard [id number] [facility] GEHRISCHDOB: [facility] [id number] Number: Repository [id number]: [phone] [id number] [phone] (HP) Date:2358-16-97YJ [address] [address]JZ[place]FHA, [place] [address]OC: CHECK WEBSITE 08/10/2017 Secondary NOT GIVENUNK Richard Insurance:SELF PAY [facility] Number: Effective Repository Date:2017-08-17 07/16/2017 COCO Cassidy Primary Insurance:[facility] COCO Cassidy [place] [id number] [facility] GEHRISCHDOB: [facility] [id number], [place] Number: Repository [id number]: 419 [id number] [phone] (HP) Date:8623-20-41TT [address] [address]TREGWRTQL, [place] [address]AZ: CHECK WEBSITE 07/16/2017 Secondary NOT GIVENUNK [place] Insurance:SELF PAY [facility] Number: Effective Repository Date:2017-07-16 07/16/2017 COCO Cassidy Primary Insurance:[facility] COCO Cassidy [place] [id number] [facility] GEHRISCHDOB: [facility] [id number], [place] Number: Repository [id number]: 419 [id number] [phone] (HP) Date:4005-20-84PL [address] [address]LSNJYBBLL, [place] [address]IV: CHECK WEBSITE 07/16/2017 Secondary NOT GIVENUNK Richard Insurance:SELF PAY [facility] Number: Effective Repository Date:2017-07-16 07/16/2017 COCO Cassidy Primary Insurance:[facility] COCO [place] [id number] [facility] GEHRISCHDOB: [facility] [id number], [place] Number: Repository [id number]: [phone] [id number] [phone] () Date:1977-58-22VC [address] [address]PMQHPMLIX, [place] [address]JO: CHECK WEBSITE 07/16/2017 Secondary NOT GIVENUNK [place] Insurance:SELF PAY [facility] Number: Effective Repository Date:2017-07-16 06/11/2017 COCO L Primary Insurance:[facility] COCO Cassidy Richard [id number] [facility] GEHRISCHDOB: [facility] [id number], [place] Number: Repository [id number]: [phone] [id number] [phone] () Date:6668-96-41EG [address] [address]QLSBYKDYX, [place] [address]CC: CHECK WEBSITE 06/11/2017 Secondary NOT GIVENUNK [place] Insurance:SELF PAY [facility] Number: Effective Repository Date:2017-06-11 06/11/2017 COCO [id number] Primary Insurance:[facility] COCO Ramos [facility] GEHRISCHDOB: [facility] [id number] Hospital [id number]: (419) Number: Repository [phone] () [id number] Date:8126-06-03FB [address] [address]BXGDZEJOR, [place] [address]NH: CHECK WEBSITE 06/11/2017 Secondary NOT GIVENUNK [place] Insurance:SELF PAY [facility] Number: Effective Repository Date:2017-06-06 05/28/2017 COCO L Primary NOT GIVENUNK [place] [id number] Insurance:SELF PAY [place], [place] Number: Effective Repository [id number]: ([phone]) Date:2017-05-28 [phone] ()
== END ==
PROVIDERS: Family Provider Family Medicine; PCP Family Medicine; Referring Provider Nurse Practitioner Women's Health; Visit Provider Nurse Practitioner Women's Health
DX: A64 Unspecified sexually transmitted disease (principal); Z11.3 Encounter for screening for infections with a predominantly sexual mode of transmission
CPT/HCPCS: 36415; 80074; 86592; 86695; 86696; 86703; 87491; 87522; 87591

== ENCOUNTER → 2018-08-13 | Outpatient (CLI) | payer OTHER, SELFPAY ==
[2018-08-13 08:52] VITALS: BMI 21.2
[2018-08-15 10:07] LABS: HPV Reflexed? NOT INDICATED
== END | disposition home or self-care (01) ==
PROVIDERS: Family Provider Family Medicine; PCP Family Medicine; Referring Provider Nurse Practitioner Women's Health; Visit Provider Nurse Practitioner Women's Health
DX: R87.610 Atypical squamous cells of undetermined significance on cytologic smear of cervix (ASC-US) (principal); N89.8 Other specified noninflammatory disorders of vagina
CPT/HCPCS: 87070; 87205; 87624; 88175; G0145

== ENCOUNTER 2019-06-08 01:42 | Emergency (ER) | payer OTHER, SELFPAY ==
[2018-08-13 08:52] VITALS: BMI 21.2
[2019-06-08 01:43] VITALS: BP 132/89; PULSE 121; RESP 20; TEMP 36.9; O2SAT 99; BMI 21.4
--- NOTE | 2019-06-08 01:45 | CT_ITS ---
STUDY: CT BRAIN WITHOUT CONTRAST REASON FOR EXAM: Female, 28 years old. PT STATED HEADACHE, VOMITING, LIGHT SENSITIVITY, SLURRED SPEECH RADIATION DOSAGE (If Supplied By Facility): CTDIvol = ( 44.99 ) mGy, DLP = ( 745.49 ) mGycm TECHNIQUE: Transaxial CT imaging of the brain was performed without administration of intravenous contrast material. Individualized dose optimization techniques were used for this CT. COMPARISON: No relevant priors. FINDINGS: Normal soft tissue structures. Normal calvarium. Normal size ventricles and extra-axial spaces for the patient''s age. Normal white matter tracts of the cerebral hemispheres. Normal basal ganglia and thalami. Normal brainstem. Normal cerebellum. There is no intracranial hemorrhage. There are no findings of an acute ischemic infarction. Normal visualized paranasal sinuses. CT/Brain/Head without Contrast IMPRESSION: Normal unenhanced CT scan of the brain. Electronically Signed: Maddie Godinez MD at 2:33 EDT , Service support ,
--- NOTE | 2019-06-08 01:48 | ED.DCSUM_ITS ---
History of Present Illness Chief Complaint: Headache Informant: Patient Onset: Days Context: Gradual Onset Timing: Waxes and wanes Current Severity: Severe Maximum Severity: Severe Narrative: Patient presents with 3-day history of migraine. She states pain is centered around the left catholic. She does have light sensitivity along with nausea and vomiting. Symptoms seem to worsen 3 hours ago. She has had some problems with finding words, some vision changes, some tingling in her extremities. She tried Excedrin Migraine without improvement. She denies fever or chills. She denies recent head injury. - Past Medical History (1) Migraines Status: Chronic (2) Anxiety Status: Chronic Past Medical History - Allergies and Home Meds Allergies/Adverse Reactions: Allergies amoxicillin Allergy (Verified 08/13/18 08:35) Hives Penicillins Allergy (Verified 08/13/18 08:35) Hives Primary Care Physician: Brant Tomlin MD [Primary Care Provider] - Prior records reviewed: Yes Smoking Status: Never smoker Review of Systems General: Denies: Chills, Fever Eyes: Reports: Blurred Vision - bilaterally ENT: Denies: Bilateral ear pain Cardiovascular: Denies: Chest pain Respiratory: Denies: Dyspnea, Cough Gastrointestinal: Reports: Nausea, Vomiting. Denies: Abdominal pain Genitourinary: Denies: Dysuria Musculoskeletal: Denies: Swelling, Extremity Pain Skin: Denies: Rash Neurological: Reports: Headache, Parasthesia Hematologic: Denies: Easy bruising, Easy bleeding Allergy: Denies: Uticaria Physical Exam Vital Signs/Narrative: Vital Signs Temp Pulse Resp BP Pulse Ox 06/08/19 01:43 98.4 F 121 H 20 H 132/89 H 99 Inital Vital Signs reviewed: Yes General: Well nourished, Well developed Head: Normocephalic Eyes: Perrl, EOMI ENT: Moist mucous membranes Neck: Supple Cardiovascular: Regular rhythm, Tachycardia Respiratory: No distress, CTA bilaterally Abdomen: Soft, Nontender, Normal bowel sounds Extremities: Nontender, No edema Skin: Normal color, No rash Neurological: Alert, Oriented x3, Normal Strength, Normal Sensation, - - Patient has good fluidity of speech. The patient only had one instance where she had trouble with what she wanted to say during my interview. Psychological: Normal affect Diagnostic/Tx/Re-eval Impressions Brain CT 06/08/19 01:45 IMPRESSION: Normal unenhanced CT scan of the brain. Electronically Signed: Maddie Godinez MD at 2:33 EDT , Service support , 06/08/19 01:45 Brain/Head without Contrast [CT] Stat Laboratory Results 06/08/19 06/08/19 06/08/19 01:45 01:45 01:47 WBC 18.3 H RBC 4.62 Hgb 13.9 Hct 41.9 MCV 90.7 MCH 30.1 MCHC 33.2 RDW Std Deviation 40.9 RDW Coeff of Prisca 12.4 Plt Count 229 MPV 10.4 Immature Gran % (Auto) 0.300 Neut % (Auto) 88.8 H Lymph % (Auto) 8.4 L [place] % (Auto) 2.1 Eos % (Auto) 0.1 Baso % (Auto) 0.3 Absolute Neuts (auto) 16.2 H Absolute Lymphs (auto) 1.54 Nucleated RBC % 0 Sodium 140 Potassium 3.9 Chloride 109 H Carbon Dioxide 24.0 Anion Gap 7 BUN 14 Creatinine 0.93 Estim Creat Clear Calc 93.69 Est GFR (MDRD) Af Amer 92 Est GFR (MDRD) Non-Af 76 BUN/Creatinine Ratio 15.1 Glucose 177 H Calcium 9.1 POC Glucose 144 H - Medical Decision Making Patient was given IV fluids along with Toradol, Reglan, and Benadryl. On repeat evaluation she does feel significantly improved. She has normal speech. Paresthesias are resolved. At this time I believe any neuro symptoms she was having are all related to the migraine. ED Disposition - Plan for ED Patient: Disposition: Home or Assisted Living Diagnosis: Migraine Instructions: ED, Migraine (Classical) Referrals: Brant Tomlin MD [Primary Care Provider] - As Needed
[2019-06-08] MEDS: Ketorolac 30 MG/ML Syringe IV (01:49)
[2019-06-08] MEDS: DiphenhydrAMINE 50 MG/ML Syringe 25 MG IV (01:49)
[2019-06-08] MEDS: 0.9% Normal Saline 1,000 ML 1000 ML IV (01:49)
[2019-06-08] MEDS: Metoclopramide 10 MG/2 ML Vial IV (01:49)
[2019-06-08 01:54] LABS: Absolute Lymphocyte Count 1.54 X10^3/uL (0.83-4.51); Absolute Neutrophil Count 16.2 X10^3/uL (2.0-7.7); Basophil# 0.06 X10^3/uL; Basophil% 0.3 % (0-1); Eosinophil# 0.02 X10^3/uL; Eosinophils% 0.1 % (0-5); Hematocrit 41.9 % (37-47); Hemoglobin 13.9 g/dL (12.0-15.0); Lymphocyte # 1.54 X10^3/ul (4.0); Lymphocyte % 8.4 % (19-41); Mean Corp Hgb Conc 33.2 g/dL (32-36); Mean Corpuscular Hgb 30.1 pg (27.0-32.0); Mean Corpuscular Volume 90.7 fL (81-99); Mean Platelet Vol. 10.4 fl (6.2-12.0); Monocyte# 0.39 X10^3/uL; Monocyte% 2.1 % (0-10); NRBC Flagged by Analyzer 0 % (0-5); Neutrophil # 16.19 X10^3/uL (2.7-7.7); Neutrophil % 88.8 % (47-70); Platelet Count 229 K/mm3 (150-450); RBC Distribution Width CV 12.4 % (11.6-14.6); RBC Distribution Width SD 40.9 fl (35.1-43.9); Red Blood Count 4.62 M/mm3 (4.2-5.4); White Blood Count 18.3 K/mm3 (4.4-11.0)
[2019-06-08 01:56] LABS: Bedside Glucose 144 mg/dL (70-110)
[2019-06-08 02:39] LABS: Anion Gap 7 (5-15); BUN 14 mg/dL (7-18); BUN/Creat Ratio 15.1 RATIO (10-20); Calcium,Total 9.1 mg/dL (8.5-10.1); Chloride 109 mmol/L (98-107); Creatinine, Serum 0.93 mg/dL (0.55-1.02); EST Glomerular Filtration Rate 76 mL/min (>60); Est Glom Filt Rate - Afr Amer 92 mL/min (>60); Estimated Creatinine Clearance 93.69 ml/min; Glucose 177 mg/dL (74-106); Potassium 3.9 mmol/L (3.5-5.1); Sodium Level 140 mmol/L (136-145)
[2019-06-08 03:09] VITALS: BP 104/63; PULSE 101; RESP 18; O2SAT 100
== END 2019-06-08 03:10 | disposition home or self-care (01) ==
PROVIDERS: Emergency Provider Emergency Medicine; PCP Family Medicine
DX: G43.909 Migraine, unspecified, not intractable, without status migrainosus (principal)
CPT/HCPCS: 70450; 80048; 82962; 85025; 96361; 96374; 96375; 99284; A4216

== ENCOUNTER → 2020-07-12 13:43 | Outpatient (CLI) | payer OTHER, SELFPAY ==
[2020-06-21 13:45] VITALS: BMI 21.4
--- NOTE | 2020-07-12 13:45 | RAD_ITS ---
STUDY: X-RAY - CERVICAL SPINE REASON FOR EXAM: Female, 30 years old. NECK PAIN,HEADACHES TECHNIQUE: 7 view(s) of the cervical spine were obtained. COMPARISON: None FINDINGS: Normal anterior atlantoaxial articulation. Normal odontoid process. Normal cervical lordosis. Normal vertebral bodies and endplates. Normal disc space heights. Normal visualized intervertebral neuroforamina. The soft tissue structures are unremarkable. RAD/Cerv Spine Obl/Flex/Ext Comp IMPRESSION: Normal x-ray examination of the visualized cervical spine. Electronically Signed: Reece Holbrook DO at 6:29 EDT Tel , Service support ,
== END ==
PROVIDERS: PCP Family Medicine; Referring Provider Family Medicine; Visit Provider Family Medicine
DX: M54.2 Cervicalgia (principal)
CPT/HCPCS: 72052

== ENCOUNTER → 2020-09-22 | Outpatient (CLI) | payer OTHER, SELFPAY ==
[2020-09-22 13:32] VITALS: BMI 21.4
[2020-09-28 16:15] LABS: HPV Reflexed? NOT INDICATED
[2020-09-29 12:35] LABS: HPV APTIMA, High Risk Negative (Negative)
== END | disposition home or self-care (01) ==
LOC: LABSPEC 14:40
PROVIDERS: PCP Family Medicine; Visit Provider Nurse Practitioner Women's Health
DX: Z12.4 Encounter for screening for malignant neoplasm of cervix (principal)
CPT/HCPCS: 88175; G0145

== ENCOUNTER 2020-10-14 13:15 | Outpatient (RCR) | payer OTHER, SELFPAY ==
[2020-06-21 13:45] VITALS: BMI 21.4
[2020-09-22 13:32] VITALS: BMI 21.4
--- NOTE | 2020-10-06 11:04 | MASS.EVAL_ITS ---
Massage Therapy Evaluation: Initial Evaluation Date: 10/01/2020 SUBJECTIVE: Julissa is a 30 year old female who was referred to the [facility] facility for a massotherapy evaluation by Dr. Tomlin with the diagnosis of neck pain and headaches. She presents today with the symptoms of pain, stiffness and tension in the neck, head and headaches. Julissa reports having a past medical history of chronic neck and shoulder pain. She reports having 3-4 headaches a week. OBJECTIVE: Upon observation Julissa has poor posture with her head and shoulders forward from the neutral position in sitting and standing. After examination and palpation, I found Julissa to have high muscle tension with tenderness and myofascial restrictions in her sub occipitals, levator scapulae, trapezius, rhomboids, scalenes, and thoracic paraspinals. The first treatment consisted of a one hour massage to her upper body with myofascial release, muscle stripping, trigger point compression techniques, and cervical manual traction. ASSESSMENT: I feel that Julissa is a good candidate for massotherapy at this time. She had a favorable response to the first treatment with reduction in her muscle aches, pain, and tension. She also had improvement in her cervical flexibility and low back flexibility. PLAN: The plan of care was reviewed with the patient. The patient is to be seen on an as needed basis for a total of ten sessions with the recommendation of once every month for a one hour treatment.
--- NOTE | 2021-02-15 13:28 | DS.PCM_ITS ---
Massage Therapy Discharge Summary: Discharge 02/15/21 Julissa was seen for a massotherapy evaluation on 10/01/20 with the diagnosis of neck pain and headaches. She was treated with three session of massage therapy. The patient was unable to schedule more visits for the year of 2020, but stated that massages helped decrease her pain. At this time I am discharging the patient from our care at [facility] facility.
== END 2020-10-14 19:00 | disposition home or self-care (01) ==
LOC: MASS 13:15
PROVIDERS: PCP Family Medicine; Visit Provider Family Medicine
DX: M54.2 Cervicalgia (principal)
CPT/HCPCS: 97124

== ENCOUNTER → 2022-01-19 | Outpatient (CLI) | payer OTHER, SELFPAY ==
[2022-01-27 15:10] LABS: HPV APTIMA, High Risk Negative (Negative)
== END | disposition home or self-care (01) ==
PROVIDERS: PCP Family Medicine; Visit Provider Obstetrics & Gynecology
DX: Z12.4 Encounter for screening for malignant neoplasm of cervix (principal)
CPT/HCPCS: 87624; 88175; G0145

== ENCOUNTER → 2023-12-14 | Outpatient (CLI) | payer OTHER, SELFPAY ==
[2023-12-14 09:28] LABS: Vitamin B12 403 pg/mL (211-911); Vitamin D,25 Hydroxy 29.8 ng/mL
[2023-12-14 09:36] LABS: Ferritin 15 ng/mL (8-252); T4 Free Direct 0.82 ng/dL (0.76-1.46)
[2023-12-17 01:06] LABS: Zinc, WHOLE BLOOD 554 ug/dL (440-860)
== END | disposition home or self-care (01) ==
LOC: LAB 08:44
PROVIDERS: PCP Family Medicine; Referring Provider Physician Assistant; Visit Provider Physician Assistant
DX: L65.0 Telogen effluvium (principal)
CPT/HCPCS: 36415; 82306; 82607; 82728; 84439; 84443; 84630

== ENCOUNTER → 2024-06-27 | Outpatient (CLI) | payer OTHER, SELFPAY ==
--- NOTE | 2024-06-27 07:12 | CT_ITS ---
PROCEDURE: SINUS/FACIAL BONE REASON FOR EXAM: OTHER CHRONIC SINUSITIS TECHNIQUE: CT of the paranasal sinuses without contrast. Coronal and Sagittal reconstruction series were provided. One or more dose reduction techniques were used (e.g., Automated exposure control, adjustment of the mA and/or kV according to patient size, use of iterative reconstruction technique). COMPARISON: None. FINDINGS: Frontal: Unremarkable Ethmoid: Minimal mucosal thickening along the right ethmoid sinus. Sphenoid: Sphenoid sinuses clear. Maxillary: Mucosal retention cyst or polyp at the base of the right maxillary sinus with a mild degree of mucosal thickening. Mild degree of mucosal thickening of the left maxillary sinus. Turbinates: Unremarkable Nasal Septum: Nasal septum is midline. Mastoids/Middle Ears: Unremarkable CT/Sinus/Facial Bone IMPRESSION: Minimal mucosal thickening of the right ethmoid sinus. Mucosal retention cyst or polyp at the base of the right maxillary sinus with a mild degree of bilateral maxillary mucosal thickening. Reading Location: [place] [address]
== END | disposition home or self-care (01) ==
PROVIDERS: PCP Family Medicine; Referring Provider Otolaryngology; Visit Provider Otolaryngology
DX: J32.9 Chronic sinusitis, unspecified (principal)
CPT/HCPCS: 70486

== ENCOUNTER → 2024-08-25 | Outpatient (CLI) | payer OTHER, SELFPAY ==
[2024-08-28 04:59] LABS: Chlamydia By Nucleic Acid AMP Negative (Negative); Gonococcus By Nucleic Acid AMP Negative (Negative)
== END | disposition home or self-care (01) ==
LOC: LABSPEC 16:39
PROVIDERS: PCP Family Medicine; Referring Provider Obstetrics & Gynecology; Visit Provider Obstetrics & Gynecology
DX: Z11.3 Encounter for screening for infections with a predominantly sexual mode of transmission (principal); Z12.4 Encounter for screening for malignant neoplasm of cervix
CPT/HCPCS: 87491; 87591; 87624; 88175; G0145

== ENCOUNTER 2024-10-28 11:44 | Outpatient (CLI) | payer OTHER, SELFPAY ==
[2024-10-28 15:40] LABS: Ferritin 36 ng/mL (22-378)
== END 2024-10-28 23:59 | disposition home or self-care (01) ==
PROVIDERS: PCP Family Medicine; Referring Provider Physician Assistant; Visit Provider Physician Assistant
DX: L65.0 Telogen effluvium (principal)
CPT/HCPCS: 36415; 82728